=== PATIENT | male | born 1975 | race African-American/Black ===

== ENCOUNTER 2016-09-09 18:37 | Emergency (ER) | payer OTHER ==
[~2016-09-09] VITALS: Ht 190.5 cm; Wt 92.7 kg
[2016-09-09 18:41] VITALS: BP 161/89; PULSE 109; RESP 20; O2SAT 98
[2016-09-09 19:17] LABS: BASOPHILS % (AUTO) 0.2 % (0-3); EOSINOPHILS % (AUTO) 0.1 % (0-5); MONOCYTES % (AUTO) 6.3 % (4-12); Mean Corpuscular Hemoglobin 29.3 pg (27.0-35.0); Mean Corpuscular Volume 86.9 fL (81-100); NEUTROPHILS % (AUTO) 89.6 % (40-74); Platelet Count 278 bil/L (150-400)
[2016-09-09 19:44] LABS: Magnesium 1.6 mg/dL (1.6-2.6)
--- NOTE | 2016-09-09 20:26 | ED.REPORT ---
HPI-Abd Pain M 40 and Over Date of Service Sep 09, 2016 ED Provider: Liam Britton DO A 41 year old male with a history of diabetes presents to the ED complaining of vomiting onset today at 1000. He has had constant vomiting for the last two hours. Vomit was more intermittent before that. Associated symptoms include sore on hand. He denies any swelling, diarrhea or abdominal pain. He did not eat breakfast today. The patient takes metformin for his diabetes which he claims is working well. He does not take any regular nausea medication. He has had diabetes for 8 years and has never been hospitalized for the disease. He east well and regularly exercises. The patient recently moved to the area from [place] and does not yet have a local PCP and has no place to get diabetes medication refilled. Nursing Notes Stated Complaint: VOMITING Chief Complaint: Male Abdominal Pain Nursing Notes Reviewed: Yes Allergies: Coded Allergies: No Known Allergies (Unverified , 09/09/16) Scheduled Metformin (Metformin) 500 Mg Tablet 1,000 MG PO BID Scheduled PRN Ondansetron ODT (Zofran ODT) 4 Mg Tablet 4 MG PO Q4H PRN PRN For Nausea General Time Seen by MD: 20:17 Chief Complaint Other (vomit) Hx Obtained From: Patient Arrived By: Walk-in Sudden in Onset?: Yes Onset Occurred: 9 - 12 hours ago Recent Healthcare: No recent doctor visit Similar Sx Previous: No Past Medical History Past Medical History Reports: Diabetes mellitus Past Surgical History none reported. Ambulatory Status Independent Review of Systems Review of Systems Note: Sore on hand. GI: Reports: Vomiting, Denies: Abdominal pain, Diarrhea Complete sys rev & neg: except as marked. Skin: Denies Swelling Physical Exam Initial Vital Signs Vital Signs (First) Date Time Temp Pulse Resp B/P Pulse Ox O2 Delivery O2 Flow Rate FiO2 09/09/16 18:41 36.9 109 20 161/89 98 Room Air Initial VS: Reviewed General/Constitutional: Awake, Alert Respiratory / Chest: Atraumatic, Breath sounds NL, Breath sounds = bilat, No respiratory distress Cardiovascular: Regular rhythm Heart Rate / Rhythm: Positive: Tachycardia Abdomen: Atraumatic, Soft, Non-tender, No guarding, No rebound Back: Atraumatic, Full range of motion Head / Eyes: Atraumatic, Normocephalic, PERRL, EOMI ENT: Atraumatic, Mucous membranes moist Skin: Warm, Dry Neurologic: Oriented X3, Speech NL Neck: Atraumatic, Full range of motion Upper Extremity / MS: Atraumatic, Full range of motion Wrist / Hand: Atraumatic, Full range of motion Lower Extremity / Pelvis / MS: Atraumatic, Full range of motion Ankle / Foot: Atraumatic, Full range of motion Interpretation & Diagnostics Lab Results Interpretation Result Diagram: 09/09/16 1902 09/09/16 1902 Test 09/09/16 19:02 White Blood Count 9.5th/mm3 (3.8-10.1) Red Blood Count 5.36mil/mm3 (4.40-5.80) Hemoglobin 15.7g/dL (13.8-17.2) Hematocrit 46.6% (41.0-50.0) Mean Corpuscular Volume 86.9fL (81-100) Mean Corpuscular Hemoglobin 29.3pg (27.0-35.0) Mean Corpuscular Hemoglobin Concent 33.7% (32.0-37.0) Red Cell Distribution Width 12.5% (12.3-15.4) Platelet Count 278bil/L (150-400) Neutrophils (%) (Auto) 89.6% (40-74) Lymphocytes (%) (Auto) 3.3% (14-46) Monocytes (%) (Auto) 6.3% (4-12) Eosinophils (%) (Auto) 0.1% (0-5) Basophils (%) (Auto) 0.2% (0-3) Sodium Level 137mEq/L (134-144) Potassium Level 4.4mEq/L (3.5-5.2) Chloride Level 95mEq/L (97-108) Carbon Dioxide Level 21mmol/L (18-29) Blood Urea Nitrogen 17mg/dL (6-24) Creatinine 1.07mg/dL (0.76-1.27) Estimat Glomerular Filtration Rate 81mL/min (>59) Glucose Level 337mg/dL (60-99) Calcium Level 9.7mg/dL (8.5-10.1) Magnesium Level 1.6mg/dL (1.6-2.6) Total Bilirubin 0.5mg/dL (0.0-1.2) Aspartate Amino Transf (AST/SGOT) 15U/L (0-50) Alanine Aminotransferase (ALT/SGPT) 24U/L (0-44) Alkaline Phosphatase 78U/L (25-150) Total Protein 8.0g/dL (6.4-8.4) Albumin 4.9g/dL (3.4-5.0) Lipase 26U/L (13-60) Hold Frazier Top Tube Received (Received) Re-Eval/Medical Decision Med Decision/Clinical Course Pleasant 41-year-old male presented with nausea and vomiting without abdominal pain or diarrhea. His labs are normal except for hyperglycemia. He felt much better after 2 L of normal saline and Zofran. I have discharged him with Zofran as well as metformin 1000 twice a day which was his previous dose that he has not had for several months. Initially he was tachycardic due to dehydration but this slowed down from 110 to 80 with fluids. He will establish with a new PCP and continue his diabetic care. Source of Hx: Old records Time of Eval: 22:40 Re-Evaluation/Progress Note: Rechecked patient who reports that they are feeling a lot better and want to go home. Exaplained diagnosis and plan for discharge and follow up. Patient understands and agrees with the plan. Counseled Regarding: Diagnosis, Lab results, Need for follow-up, When/why to return to ED Discharge & Departure Primary Impression: Nausea and vomiting Vomiting type: unspecified Vomiting Intractability: unspecified Qualified Code: R11.2 - Nausea with vomiting, unspecified Additional Impressions: Dehydration Hyperglycemia Disposition: Home Vital Signs - All Vital Signs Date Time Temp Pulse Resp B/P Pulse Ox O2 Delivery O2 Flow Rate FiO2 09/09/16 23:22 36.8 80 18 128/60 98 Room Air 09/09/16 22:08 92 16 134/55 99 Room Air 09/09/16 18:41 36.9 109 20 161/89 98 Room Air )( All Prior VS Reviewed: Yes Condition: Stable Patient Instructions: Acute Nausea and Vomiting (ED) Additional Instructions: Thank you for entrusting us with your care today. Your emergency department evaluation revealed high blood sugar related to your diabetes but no other concerning findings. I am glad you are feeling better after fluids and nausea medication. I am sending you home with Zofran which can be used as needed for nausea. I am also writing a prescription for metformin 1000 mg twice daily which you should restart. Please follow-up with the residency clinic at the phone number listed below. Return to the ER for new or worsening symptoms. Referrals: [facility] [place] Attestation Portions of this note were transcribed by Erick Meneses. I, Dr. Britton personally performed the history, physical exam and medical decision-making; I reviewed and confirmed the accuracy of the information in the transcribed note. Signed by: Manuel Sim, 09/09/2016 2321. copies to: [facility] Liam Britton DO Sep 09, 2016 20:26 Erick Meneses Sep 09, 2016 20:33
[2016-09-09] MEDS ORDERED: 0.9% Sodium Chloride 1,000 ML IV ONE ×2 (20:41)
[2016-09-09] MEDS ORDERED: Ondansetron 2 mg/mL 2 mL Inj ONE (20:43)
[2016-09-09] MEDS ORDERED: Ondansetron 2 mg/mL 2 mL Inj IVPUSH ONE (20:45)
[2016-09-09] MEDS ORDERED: Insulin LISPRO 300 Unit/3 mL Inj SUBQ ONE (20:45)
[2016-09-09 22:08] VITALS: BP 134/55; PULSE 92; RESP 16; O2SAT 99
[2016-09-09] MEDS ORDERED: METF500T4 PO (23:05)
[2016-09-09] MEDS ORDERED: ONDA4TAB9 PO (23:05)
[2016-09-09 23:22] VITALS: BP 128/60; PULSE 80; RESP 18; O2SAT 98
== END 2016-09-09 23:24 | disposition home or self-care (01) ==
LOC: SED 18:37
DX: R11.2 Nausea with vomiting, unspecified (principal); E86.0 Dehydration; E11.65 Type 2 diabetes mellitus with hyperglycemia; Z79.84 Long term (current) use of oral hypoglycemic drugs
CPT/HCPCS: 36415; 80053; 82948; 83690; 83735; 85025; 96361; 96372; 96374; 99284; J1815; J2405; J7030

== ENCOUNTER 2016-09-11 12:02 | Emergency (ER) | payer OTHER ==
[~2016-09-11] VITALS: Ht 190.5 cm; Wt 92.7 kg
[~2016-09-11 12:02] MED LIST: METF500T4 PO; ONDA4TAB9 PO
[2016-09-11 12:04] VITALS: BP 133/87; PULSE 96; RESP 20; O2SAT 94
--- NOTE | 2016-09-11 12:27 | ED.REPORT ---
HPI-NVD Date of Service Sep 11, 2016 ED Provider: Annie Hodgson MD 41 year old type II diabetic male presents to the ER complaining of abdominal pain and diarrhea. Patient was seen here in the ER three days ago for abdominal pain, nausea, vomiting, and diarrhea. At that time he was prescribed Zofran and discharged. He has not vomited since his discharge, but complains of persistent abdominal pain and diarrhea. Three weeks ago he finished a course of azithromycin to treat bronchitis. Nursing Notes Stated Complaint: DEHYDRATION,ABD PAIN Chief Complaint: Male Abdominal Pain Nursing Notes Reviewed: Yes Allergies: Coded Allergies: No Known Allergies (Unverified , 09/09/16) Scheduled Metformin (Metformin) 500 Mg Tablet 1,000 MG PO BID Scheduled PRN Ondansetron ODT (Zofran ODT) 4 Mg Tablet 4 MG PO Q4H PRN PRN For Nausea General Time Seen by MD: 12:25 Chief Complaint Abd pain, constant Hx Obtained From: Patient Arrived By: Walk-in Onset Occurred: 3 days ago Symptom Duration: Since onset Location: : Diffuse Quality: Painful Severity: Current: Moderate Severity: Maximum: Moderate Additional Notes: Diarrhea Pertinent Negative: Pt denies other symptoms Related History: Reports: Diabetes mellitus Recent Healthcare: Recent doctor visit Similar Sx Previous: Yes Past Medical History Past Medical History Reports: Diabetes mellitus Past Surgical History none reported. Ambulatory Status Independent Review of Systems Constitutional: Denies: Chills, Fever GI: Reports: Abdominal pain, Diarrhea, Nausea, Denies: Vomiting Skin: Denies Diaphoresis Complete sys rev & neg: except as marked. Respiratory: Denies: Non-productive cough, Shortness of breath Cardiovascular: Denies: Chest pain Physical Exam Initial Vital Signs Vital Signs (First) Date Time Temp Pulse Resp B/P Pulse Ox O2 Delivery O2 Flow Rate FiO2 09/11/16 12:04 36.8 96 20 133/87 94 09/11/16 15:51 Room Air Initial VS: Reviewed Head / Eyes: Atraumatic, Normocephalic Neck: Supple, Non-tender, Full range of motion Extremities: Vascular intact, Neuro intact, No swelling, No tenderness Skin: Warm, Dry, No cyanosis Neurologic: Alert, Oriented, Nonfocal General/Constitutional: Awake, Alert, Well developed, Well nourished Abdomen: Soft, Non-tender, No guarding, No rebound, No distention Interpretation & Diagnostics Lab Results Interpretation Result Diagram: 09/11/16 1330 09/11/16 1330 Test 09/11/16 13:30 09/11/16 14:59 White Blood Count 4.1th/mm3 (3.8-10.1) Red Blood Count 4.69mil/mm3 (4.40-5.80) Hemoglobin 13.8g/dL (13.8-17.2) Hematocrit 40.9% (41.0-50.0) Mean Corpuscular Volume 87.2fL (81-100) Mean Corpuscular Hemoglobin 29.4pg (27.0-35.0) Mean Corpuscular Hemoglobin Concent 33.7% (32.0-37.0) Red Cell Distribution Width 12.4% (12.3-15.4) Platelet Count 233bil/L (150-400) Neutrophils (%) (Auto) 68.6% (40-74) Lymphocytes (%) (Auto) 19.7% (14-46) Monocytes (%) (Auto) 11.5% (4-12) Eosinophils (%) (Auto) 0% (0-5) Basophils (%) (Auto) 0.2% (0-3) Sodium Level 135mEq/L (134-144) Potassium Level 3.3mEq/L (3.5-5.2) Chloride Level 98mEq/L (97-108) Carbon Dioxide Level 21mmol/L (18-29) Blood Urea Nitrogen 12mg/dL (6-24) Creatinine 0.85mg/dL (0.76-1.27) Estimat Glomerular Filtration Rate 105mL/min (>59) Glucose Level 223mg/dL (60-99) Calcium Level 8.4mg/dL (8.5-10.1) Magnesium Level 1.8mg/dL (1.6-2.6) Total Bilirubin 0.8mg/dL (0.0-1.2) Aspartate Amino Transf (AST/SGOT) 18U/L (0-50) Alanine Aminotransferase (ALT/SGPT) 18U/L (0-44) Alkaline Phosphatase 51U/L (25-150) Total Protein 6.9g/dL (6.4-8.4) Albumin 4.1g/dL (3.4-5.0) Lipase 30U/L (13-60) Hold Frazier Top Tube Received (Received) Hold Urine Received (Received) Re-Eval/Medical Decision Source of Hx: Old records Re-Evaluation/Progress #1: Time of Eval: 13:24 Re-Evaluation/Progress Note: Patient is resting comfortably. Re-Evaluation/Progress #2: Time of Eval: 16:03 Patient Status: Condition improved Re-Evaluation/Progress Note: Significantly better after fluid hydration. No virus returns positive. Imodium is given. Results are shared with him. He will restart his metformin once diarrhea has resolved and has plans to follow up with [facility] to establish care Counseled Regarding: Diagnosis, Lab results Discharge & Departure Impression: Primary Impression: Norovirus Additional Impression: Dehydration Disposition: Home Discharge Condition All VS Reviewed: Yes Condition: Stable Additional Instructions: Thank you for letting us evaluate you today. You were moderately dehydrated and responded well to fluid. You have nor virus to cause all of your diarrhea. You should be getting over this shortly. Imodium will be helpful in slowing the diarrhea down. Please continue to follow up at the [facility] to establish a primary care physician Welcome to the area! Referrals: NOPCP (PCP) [place] Attestation Portions of this note were transcribed by Tiana Herr. I, Dr. Hodgson, personally performed the history, physical exam and medical decision-making; I reviewed and confirmed the accuracy of the information in the transcribed note. Signed by: Manuel Castorena, 09/11/2016 and [time]. Annie Hodgson MD Sep 11, 2016 12:27 TIANA HERR Sep 11, 2016 12:28 Annie Hodgson MD Sep 11, 2016 12:27 TIANA HERR Sep 11, 2016 12:28
[2016-09-11] MEDS ORDERED: 0.9% Sodium Chloride 1,000 ML IV SCH (12:45)
[2016-09-11] MEDS ORDERED: 0.9% Sodium Chloride 1,000 ML IV ONE (12:45)
[2016-09-11 13:51] LABS: BASOPHILS % (AUTO) 0.2 % (0-3); EOSINOPHILS % (AUTO) 0 % (0-5); MONOCYTES % (AUTO) 11.5 % (4-12); Mean Corpuscular Hemoglobin 29.4 pg (27.0-35.0); Mean Corpuscular Volume 87.2 fL (81-100); NEUTROPHILS % (AUTO) 68.6 % (40-74); Platelet Count 233 bil/L (150-400)
[2016-09-11 14:13] LABS: Magnesium 1.8 mg/dL (1.6-2.6)
[2016-09-11 15:51] VITALS: BP 124/74; PULSE 86; RESP 18; O2SAT 100
[2016-09-11 16:29] VITALS: BP 124/74; PULSE 86; RESP 18; O2SAT 100
== END 2016-09-11 16:29 | disposition home or self-care (01) ==
LOC: SED 12:02
DX: A08.11 Acute gastroenteropathy due to Norwalk agent (principal); E86.0 Dehydration; E11.9 Type 2 diabetes mellitus without complications; Z79.84 Long term (current) use of oral hypoglycemic drugs
CPT/HCPCS: 36415; 80053; 83690; 83735; 85025; 87507; 99284; J7030